=== PATIENT | female | born 1985 | race Caucasian/White ===

== ENCOUNTER 2020-09-25 08:12 | Emergency (ER) | payer BC ==
[~2020-09-25] VITALS: Ht 162.6 cm; Wt 53.1 kg
[2020-09-25] MEDS ORDERED: ONDANSETRON ODT 8 MG ONE (08:35)
[2020-09-25] MEDS ORDERED: PROMETHAZINE 25 MG/ML, 1ML ONE (08:56)
[2020-09-25 09:00] LABS: MEAN CORPUSCULAR HEMOGLOBIN 31.5 pg (27.0-34.8); MEAN PLATELET VOLUME 7.2 fL (7.4-10.4); PLATELET COUNT 279 x10^3/uL (130-400); RED BLOOD COUNT 4.24 x10^6/uL (3.82-5.3); RED CELL DISTRIBUTION WIDTH 12.7 % (9.6-15.2)
[2020-09-25] MEDS ORDERED: FAMOTIDINE 20 MG TABLET PO ONE (09:00)
[2020-09-25] MEDS ORDERED: MECLIZINE CHEWABLE 25 MG TAB PO PRN (09:00)
[2020-09-25] MEDS ORDERED: PROMETHAZINE 25 MG/ML, 1ML IM ONE (09:00)
[2020-09-25] MEDS ORDERED: ONDANSETRON ODT 4 MG PO ONE (09:00)
[2020-09-25 09:04] VITALS: BP 101/58
--- NOTE | 2020-09-25 09:04 | NUR ---
BREAK RN: PT UPRIGHT ON GURNEY CHANGING POSITIONS FREQUENTLY, C/O NV- MEDICATED PER EMAR, COMFORT MEASURES PROVIDED, FRIEND AT BS, VERBALIZED UNDERSTANDING OF KEEPING MONITORS IN PLACE & CALLING WHEN READY TO VOID FOR UA SAMPLE, CALL LIGHT WITHIN REACH.
[2020-09-25 09:13] LABS: ALANINE AMINOTRANSFERASE 20 U/L (12-78); ALBUMIN 4.5 g/dL (3.4-5.0); ANION GAP 10 mmol/L (5-15); CALCIUM 9.2 mg/dL (8.5-10.1); CHLORIDE 112 mmol/L (98-107)
[2020-09-25 09:18] LABS: ALKALINE PHOSPHATASE 57 U/L (45-117); BILIRUBIN,TOTAL 0.9 mg/dL (0.2-1.0); CREATININE 0.86 mg/dL (0.55-1.02); TOTAL PROTEIN 8.3 g/dL (6.4-8.2)
[2020-09-25 09:19] LABS: MD YES
[2020-09-25] MEDS ORDERED: MECLIZINE CHEWABLE 25 MG TAB ONE (09:19)
[2020-09-25] MEDS ORDERED: FAMOTIDINE 20 MG TABLET ONE (09:19)
[2020-09-25 09:21] LABS: LYMPH#(MANUAL) 1.06 x10^3/uL (1-3.4); LYMPHS% (MANUAL) 7 % (22-44); MONOS#(MANUAL) 0.91 x10^3/uL (0.3-2.7); MONOS% (MANUAL) 6 % (2-9); SEG#(MANUAL) 13.14 x10^3/uL (1.8-6.8); SEGS% (MANUAL) 87 % (42-75)
[2020-09-25 09:22] LABS: PMNS WITH VACUOLES 1+
--- NOTE | 2020-09-25 09:22 | NUR ---
PT NO LONGER VOMITING
[2020-09-25 09:25] LABS: <PLATELET ESTIMATE> ADEQUATE; <PLT MORPHOLOGY> NORMAL PLT MORPH; <RBC MORPHOLOGY> NORMAL
[2020-09-25 10:01] LABS: MICROSCOPIC INDICATED
--- NOTE | 2020-09-25 10:36 | NUR ---
PT FEELING MUCH BETTER. ABLE TO HOLD DOWN WATER. STATES SHE IS NO LONGER EXPERIENCING VERTIGO
--- NOTE | 2020-09-25 10:40 | NUR ---
Patient given discharge instructions and Rx, they have confirmed that they understand the instructions. Patient ambulatory with steady gait.
== END 2020-09-25 10:41 | disposition home or self-care (01) ==
LOC: ED 10:20
DX: R11.2 Nausea with vomiting, unspecified (principal); R53.83 Other fatigue; F17.210 Nicotine dependence, cigarettes, uncomplicated; R94.31 Abnormal electrocardiogram [ECG] [EKG]
CPT/HCPCS: 36415; 80053; 81001; 84703; 85025; 93005; 99284; 99406; Q0162